=== PATIENT | female | born 2000 | race American Indian/Alaskan Native ===

== ENCOUNTER 2019-02-22 11:43 | Emergency (ER) | payer OTHER ==
--- NOTE | 2019-02-22 11:50 | Emergency Department Report ---
Blank Doc - Documentation Documentation: This is a 18-year-old female presents with pelvic pain with vaginal bleed ing. Stated is about 16 weeks . This initial assessment/diagnostic orders/clinical plan/treatment(s) is/are subject to change based on patient's health status, clinical progression and re-assessment by fellow clinical providers in the ED. Further treatment and workup at subsequent clinical providers discretion. Patient/guardians urged not to elope from the ED as their condition may be serious if not clinically assessed and managed. Initial orders include: 1- Patient sent to [facility] for further evaluation and treatment 2- labs 3- UA 4- US OB
[2019-02-22 12:23] LABS: Bacteria,Urine 1+ /HPF (Negative); Bilirubin,Urine NEG (Negative); Blood,Urine NEG (Negative); Color,Urine Yellow (Yellow); Mucus,Urine FEW /HPF
[2019-02-22 12:32] LABS: Basophils % (Auto) 0.5 % (0.0-1.8); Eosinophils # (Auto) 0.1 K/mm3 (0.0-0.4); Hematocrit 32.3 % (30.3-42.9); Hemoglobin 11.1 gm/dl (10.1-14.3); Lymphocytes # (Auto) 1.3 K/mm3 (1.2-5.4); Mean Corpuscular HGB Conc 34 % (30-34); Mean Corpuscular Volume 91 fl (79-97); Monocytes # (Auto) 0.5 K/mm3 (0.0-0.8); Monocytes % (Auto) 5.7 % (0.0-7.3); Platelet Count 262 K/mm3 (140-440); Red Blood Count 3.55 M/mm3 (3.65-5.03); Red Cell Distribution Width 13.8 % (13.2-15.2)
--- NOTE | 2019-02-22 14:52 | Ultrasound Report ---
OB ULTRASOUND History: Pelvic pain, vaginal bleeding. Technique: Transabdominal ultrasound with Doppler interrogation. Gestation: Single Position: Transverse with head to maternal right Amniotic Fluid: Within normal limits Placenta: Anterior, a complete previa is demonstrated Placental Grade: 0 Heart Rate: 146 BPM BPD: 3.4 cm = 16 w 3 d HC: 12.6 cm = 16 w 2 d AC: 10.0 cm = 16 w 0 d FL: 2.0 cm = 16 w 0 d HC/AC Ratio: 1.25 Cephalic Index: 84.2 Estimated Weight: 144 grams Clinical age = 16 w 1 d EDC: 08/08/19 US Gest. Age = 16 w 1 d EDC: 08/08/19 IMPRESSION: Viable, single intrauterine as described. A complete placental previa is demonstrated.
--- NOTE | 2019-02-22 15:11 | Emergency Department Report ---
ED HPI - General Chief complaint: Vaginal Bleeding Stated complaint: 16WKS/SPOTTING/PAIN Time Seen by Provider: 02/22/19 11:49 Source: patient Mode of arrival: Ambulatory Limitations: No Limitations - History of Present Illness Initial comments: 18 yo female with bleeding during . Reported light bleeding and no abd pain. Denies vaginal discharge. Started this AM; not saturating pads. LMP 10/30 MD Complaint: vaginal bleeding Severity: mild Consistency: intermittent Improves with: none Worsens with: none Associated symptoms: vaginal bleeding Vaginal bleeding: light :: Yes OB History - Current : no complications OB History - Previous Pregnancies: no complications Pre-amelia care: other ([facility]) - Related Data : 2 Para: 1 Allergies Allergy/AdvReac Type Severity Reaction Status Date / Time No Known Allergies Allergy Unverified 02/22/19 11:47 ED Review of Systems ROS: Stated complaint: 16WKS/SPOTTING/PAIN Other details as noted in HPI Comment: All other systems reviewed and negative Constitutional: denies: chills Eyes: denies: eye pain ENT: denies: throat pain Respiratory: denies: cough Cardiovascular: denies: chest pain Endocrine: denies: intolerance to cold Gastrointestinal: denies: abdominal pain Genitourinary: as per HPI, abnormal menses Musculoskeletal: denies: back pain Skin: denies: rash Neurological: denies: headache Psychiatric: denies: anxiety Hematological/Lymphatic: denies: easy bleeding ED Past Medical Hx - Past Medical History Previous Medical History?: No - Surgical History Past Surgical History?: No - Family History Family history: no significant - Social History Smoking Status: Never Smoker Substance Use Type: None ED Physical Exam - General Limitations: No Limitations General appearance: alert - Head Head exam: Present: normocephalic - Eye Eye exam: Present: normal appearance, PERRL - ENT ENT exam: Present: normal exam, mucous membranes moist - Neck Neck exam: Present: normal inspection - Respiratory Respiratory exam: Present: normal lung sounds bilaterally - Cardiovascular Cardiovascular Exam: Present: regular rate, normal rhythm (90 on exam) - GI/Abdominal GI/Abdominal exam: Present: soft, normal bowel sounds - Speculum exam: Present: vaginal bleeding (light), other (os closed) Bi-manual exam: Present: normal bi-manual exam - Extremities Exam Extremities exam: Present: normal inspection, full ROM - Back Exam Back exam: Present: normal inspection, full ROM. Absent: CVA tenderness (R), CVA tenderness (L) - Neurological Exam Neurological exam: Present: alert, oriented X3 - Psychiatric Psychiatric exam: Present: normal affect, normal mood - Skin Skin exam: Present: warm, dry, intact ED Course Vital Signs 02/22/19 02/22/19 11:54 15:21 Temperature 98.4 F Pulse Rate 101 H 100 H Respiratory 16 15 Rate Blood Pressure 105/63 Blood Pressure 102/69 [Left] O2 Sat by Pulse 100 99 Oximetry ED Medical Decision Making - Lab Data Result diagrams: 02/22/19 12:12 - Radiology Data Radiology results: report reviewed, image reviewed SEE REPORT - Medical Decision Making LMP 10/30 LIGHT VAG BLEED IN PREG LABS NOTED URINE NOTED US NOTED Vital Signs 02/22/19 02/22/19 11:54 15:21 Temperature 98.4 F Pulse Rate 101 H 100 H Respiratory 16 15 Rate Blood Pressure 105/63 Blood Pressure 102/69 [Left] O2 Sat by Pulse 100 99 Oximetry Labs 02/22/19 02/22/19 02/22/19 12:10 12:12 12:12 WBC 8.9 RBC 3.55 L Hgb 11.1 Hct 32.3 MCV 91 MCH 31 MCHC 34 RDW 13.8 Plt Count 262 Lymph % (Auto) 15.0 [place] % (Auto) 5.7 Eos % (Auto) 1.0 Baso % (Auto) 0.5 Lymph # 1.3 [place] # 0.5 Eos # 0.1 Baso # 0.0 Seg Neutrophils % 77.8 H Seg Neutrophils # 7.0 HCG, Quant 35302 H Urine Color Yellow Urine Turbidity Clear Urine pH 7.0 Ur Specific [place] 1.031 H Urine Protein 30 mg/dl Urine Glucose (UA) Neg Urine Ketones Neg Urine Blood Neg Urine Nitrite Neg Urine Bilirubin Neg Urine Urobilinogen 2.0 Ur Leukocyte Esterase Tr Urine WBC (Auto) 6.0 Urine RBC (Auto) 2.0 U Epithel Cells (Auto) 5.0 Urine Bacteria (Auto) 1+ Urine Mucus Few Blood Type Antibody Screen 02/22/19 12:12 WBC RBC Hgb Hct MCV MCH MCHC RDW Plt Count Lymph % (Auto) [place] % (Auto) Eos % (Auto) Baso % (Auto) Lymph # [place] # Eos # Baso # Seg Neutrophils % Seg Neutrophils # HCG, Quant Urine Color Urine Turbidity Urine pH Ur Specific [place] Urine Protein Urine Glucose (UA) Urine Ketones Urine Blood Urine Nitrite Urine Bilirubin Urine Urobilinogen Ur Leukocyte Esterase Urine WBC (Auto) Urine RBC (Auto) U Epithel Cells (Auto) Urine Bacteria (Auto) Urine Mucus Blood Type A POSITIVE Antibody Screen Negative Discussed ultrasound findings with pt and mother. They will call OBGYN and follow up in AM. Dc home on pelvic rest. Critical care attestation.: If time is entered above; I have spent that time in minutes in the direct care of this critically ill patient, excluding procedure time. ED Disposition Clinical Impression: , Vaginal bleeding affecting early Disposition: DC-01 TO HOME OR SELFCARE Is pt being admited?: No Does the pt Need Aspirin: No Condition: Stable Instructions: Placenta Previa (ED) Additional Instructions: NOTHING IN VAGINA REST NO HEAVY LIFTING TYLENOL FOR PAIN FOLLOW UP WITH OBGYN REFERRAL BELOW WITHIN 48 HOURS YOUR BLOOD TYPE IS POS HCG LEVEL [id number] LET THE OBGYN KNOW YOU WERE HERE AND THEY WILL BE ABLE TO REVIEW THE IMAGES OF YOUR ULTRASOUND Referrals: LARRY TRIPP MD [Primary Care Provider] - 3-5 Days Forms: Work/School Release Form(ED) Time of Disposition: 15:11
[2019-02-22 15:22] VITALS: BP 102/69
== END 2019-02-22 15:22 | disposition home or self-care (01) ==
LOC: ED 11:43
DX: O20.9 Hemorrhage in early pregnancy, unspecified (principal); Z3A.16 16 weeks gestation of pregnancy
CPT/HCPCS: 36415; 76805; 81001; 84702; 85025; 86850; 86900; 86901